=== PATIENT | female | born 1985 | race Caucasian/White ===

== ENCOUNTER 2017-08-30 10:49 | Emergency (ER) | payer MEDICAID ==
[2017-08-30 11:13] VITALS: BMI 18.2
[2017-08-30 11:21] VITALS: TEMP 98.6
--- NOTE | 2017-08-30 11:43 | ED PDOC ---
Arrival/HPI - General Chief Complaint: Female Genitourinary Time Seen by Provider: 08/30/17 11:39 Historian: Patient, Spouse - History of Present Illness Narrative History of Present Illness (Text): 08/30/17 11:39 pt p/w + sudden onset of vaginal spotting/bleeding, pt noted + prior pelvic cramps and persistent cramps post bleeding; pt with 5/10 pain cramps; pt states + nausea/+ 1 episode of vomiting; no fever/chills/sweats, no cp/sob/palpitations , no numbness/tingling, no urinary/bowel changes; pt denied LOC; pt is here for further eval; pt's without other complaints. pt denied fall/trauma/sick contact, no travel LMP: 06/17/2017 + care - + U/S was performed by private OB ~ 2 weeks ago confirmed single intraUterine gestation Time/Duration: Prior to Arrival Symptom Onset: Sudden Symptom Course: Improving Quality: Cramping Severity Level: 5 Activities at Onset: Rest Context: Home Past Medical History - Provider Review Nursing Documentation Reviewed: Yes - Travel History Have you recently traveled outside [place] w/in the past 3 mons?: No - Past History Past History: No Previous - Infectious Disease Hx of Infectious Diseases: None - Reproductive Menopause: No Currently : Yes - Psychiatric Hx Substance Use: No - Surgical History Other/Comment: B/L Beast implants - Anesthesia Hx Anesthesia: No Hx Anesthesia Reactions: No Hx Malignant Hyperthermia: No Family/Social History - Physician Review Nursing Documentation Reviewed: Yes Family/Social History: No Known Family HX Smoking Status: Never Smoked Hx Alcohol Use: No Hx Substance Use: No Hx Substance Use Treatment: No Allergies/Home Meds Allergies/Adverse Reactions: Allergies No Known Allergies Allergy (Verified 08/30/17 11:21) Home Medications: Home Meds Medication Instructions Recorded Confirmed No Known Home Med 08/30/17 08/30/17 Review of Systems - Review of Systems Constitutional: Normal Eyes: Normal ENT: Normal Respiratory: Normal Cardiovascular: Normal Gastrointestinal: Abdominal Pain, Nausea, Vomiting Genitourinary Female: Vaginal Bleeding. absent: Dysuria, Frequency, Hematuria, Vaginal Discharge Musculoskeletal: Normal Skin: Normal Neurological: Normal Endocrine: Normal Hemo/Lymphatic: Normal Psychiatric: Normal Physical Exam Vital Signs Reviewed: Yes Vital Signs Temp Pulse Resp BP Pulse Ox 08/30/17 14:00 82 18 132/80 100 08/30/17 12:30 76 17 129/78 100 08/30/17 11:13 98.6 F 80 18 136/84 99 Temperature: Afebrile Blood Pressure: Normal Pulse: Regular Respiratory Rate: Normal Appearance: Positive for: Well-Appearing, Non-Toxic, Uncomfortable, Other ( uncomfortable, alert/awake, GCS = 15, oriented x 3, NAD, resting in bed; cooperative) Pain Distress: None Mental Status: Positive for: Alert and Oriented X 3 - Systems Exam Head: Present: Atraumatic, Normocephalic Pupils: Present: PERRL, Other (no nystagmus, no photophobia, sclera anicteric, visual field intact b/l) Extroacular Muscles: Present: EOMI Conjunctiva: Present: Normal Ears: Present: Normal Mouth: Present: Moist Mucous Membranes, Other (no drooling/stridor, no exudate/ lesions, intact dentitions) Pharnyx: Present: Normal Nose (External): Present: Atraumatic Nose (Internal): Present: Normal Inspection Neck: Present: Normal Range of Motion, Trachea Midline, Other (intact ROM, no meningeal signs, no midline tenderness, no step off). No: MIDLINE TENDERNESS Respiratory/Chest: Present: Clear to Auscultation, Good Air Exchange, Other ( CTA b/l, no w/r/r) Cardiovascular: Present: Regular Rate and Rhythm, Normal S1, S2. No: Murmurs, Tachycardic Abdomen: Present: Normal Bowel Sounds, Other (+ suprapubic/lower mid pelvic mild tenderness, no street's sign, no mcburney's point tenderness, no masses/ rebound/guarding/rigidity; well nourished female) Genitourinary/Pelvic Exam: Present: Normal External Genitalia, Cervical os Closed, Other. No: Vaginal Discharge, Vaginal Bleeding, Adenexal Tenderness, Adenexal Mass Back: Present: Normal Inspection, Other (no midline tenderness, no CVAT b/l, no step off). No: CVA Tenderness, Midline Tenderness Upper Extremity: Present: Normal Inspection, Normal ROM, NORMAL PULSES, Neurovascularly Intact, Capillary Refill < 2s Lower Extremity: Present: Normal Inspection, NORMAL PULSES, Normal ROM, Neurovascularly Intact, Capillary Refill < 2 s, Other (+ ambulatory, neurovasc intact b/l, strength 5/5 grossly intact in all limbs) Neurological: Present: GCS=15, CN II-XII Intact, Speech Normal Skin: Present: Warm, Normal Color, Other (cap refill < 1 sec, no ulcerations, no petechiae, no rashes, no pallor) Psychiatric: Present: Alert, Oriented x 3 Medical Decision Making ED Course and Treatment: 08/30/17 11:40 Impression: vaginal bleeding, + preg i have consider all the differential diagnosis regarding pt's chief medical complaints/clinical findings, including but are not limited to: + vaginal bleeding/preg A/P: vaginal bleeding/preg - labs - ua - us - observe - supportive care 08/30/17 14:50 pt tolerated po well pt is feeling improved vital signs stable pt/spouse are made aware of her medical results pt is encouraged no heavy lifting pt is encouraged no sex pt is encouraged fluid hydration pt will f/u as directed pt will be discharged home Re-evaluation Time: 14:11 Reassessment Condition: Improved - Lab Interpretations Lab Results: Lab Results 08/30/17 11:50: Blood Type Pending, Antibody Screen Pending, BBK History Checked No verified bt 08/30/17 11:50: Beta HCG, Quant [id number] H 08/30/17 11:50: Urine Color Yellow, Urine Appearance Clear, Urine pH 6.0, Ur Specific [place] 1.025, Urine Protein Trace H, Urine Glucose (UA) Negative, Urine Ketones Negative, Urine Blood Large H, Urine Nitrate Negative, Urine Bilirubin Negative, Urine Urobilinogen 0.2, Ur Leukocyte Esterase Negative, Urine RBC 20 - 25, Urine WBC 1 - 3, Ur Epithelial Cells 6 - 8, Urine Bacteria Many, Coarse Granular Casts Trace H, Urine Other Uyeast 08/30/17 11:50: APTT 26.4 I have reviewed the lab results: Yes Interpretation: All labs normal (pt is O+) - RAD Interpretation Narrative RAD Interpretations (Text): Report Date : 08/30/2017 12:36:25 PROCEDURE: OB Pelvic Ultrasound Dictator : Savana Sanchez MD IMPRESSION: Single live intrauterine gestation with mean gestational age of 11 weeks and 5 days. Estimated date of delivery by ultrasound is 03/16/2018. 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 Ulcer: No History Surgical Site Infection Following: None - Disposition Have Diagnosis and Disposition been Completed?: Yes Diagnosis: Threatened in first trimester, Vaginal bleeding Disposition: HOME/ ROUTINE Disposition Time: 15:00 Patient Plan: Discharge Patient Problems: Current Active Problems Problem Status Onset Threatened in first trimester Acute Vaginal bleeding Acute Condition: STABLE Discharge Instructions (ExitCare): Threatened Miscarriage, Bleeding With Print Language: PALAUAN Additional Instructions: Make sure to see your doctor in 1-2 days YOU need to see your OB doctor as soon as possible DRINK PLENTY OF FLUIDS take your medications as prescribed AVOID heavy lifting AVOID sex until your doctor says its ok RETURN TO ED IF worse pain, cant breath, persistent vomiting, high fever >101- 102 for hours, altered behavior, unable to urinate, heavy/persistent bleeding, passing out, chest pain, or other medical emergencies Referrals: [facility] Neeta Briones, [Primary Care Provider] - Follow up with primary Forms: [employer] (H[place]er)
[2017-08-30 12:03] LABS: URINE BILIRUBIN NEGATIVE (NEGATIVE); URINE BLOOD LARGE (NEGATIVE); URINE GLUCOSE (UA) NEGATIVE (NEGATIVE); URINE LEUKOCYTE ESTERASE NEGATIVE Leu/uL (NEGATIVE); URINE PROTEIN TRACE mg/dL (<30 mg/dL); URINE UROBILINOGEN 0.2 E.U./dL (<1 E.U./dL)
[2017-08-30 12:05] LABS: URINE APPEARANCE CLEAR (CLEAR); URINE COLOR YELLOW (YELLOW)
[2017-08-30 12:14] LABS: URINE BACTERIA MANY (NEG); URINE COARSE GRANULAR CAST TRACE /hpf (0-2); URINE RBC 20 - 25 /hpf (0-2)
--- NOTE | 2017-08-30 12:37 | US ---
PROCEDURE: OB Pelvic Ultrasound HISTORY: Vaginal bleeding, preg, lmp=06/17 COMPARISON: None available. FINDINGS: UTERUS: Single Live intrauterine gestation. CRL measures 5.02 cm equivalent to 11 weeks and 5 days of gestational age. Gestational sac diameter measures 5.64 cm equivalent to 11 weeks and 4 days of gestational age. age (Ultrasound estimated): 11 weeks and 5 days. Date of delivery (Ultrasound estimated) : 03/16/2018 Heart rate: 173 bpm. Luis[place]-gestational hemorrhage: None. Uterus measures 12.5 x 0.5 x 9.3 cm. No mass CERVIX: Long and closed. No cervical abnormality seen. RIGHT OVARY: Measures 5.0 x 2.2 x 3.4 cm. No mass. Normal flow. LEFT OVARY: Measures 4.1 x 4.0 x 1.2 cm. No mass. Normal flow. FREE FLUID: None. OTHER FINDINGS: None. IMPRESSION: Single live intrauterine gestation with mean gestational age of 11 weeks and 5 days. Estimated date of delivery by ultrasound is 03/16/2018.
[2017-08-30 14:43] VITALS: O2SAT 100
[2017-08-30 14:55] VITALS: BP 127/80; PULSE 78; RESP 17
== END 2017-08-30 14:56 | disposition home or self-care (01) ==
LOC: ED 10:49
DX: O20.0 Threatened abortion (principal); Z3A.11 11 weeks gestation of pregnancy

== ENCOUNTER 2018-06-09 19:08 | Emergency (ER) | payer MEDICAID ==
[2018-06-09 19:08] VITALS: BMI 18.2
[2018-06-09 20:08] VITALS: BP 106/68; PULSE 87; RESP 20; TEMP 97.9; O2SAT 95
--- NOTE | 2018-06-09 20:35 | ED PDOC ---
Arrival/HPI <Andry Raymundo - Last Filed: 06/09/18 22:36> - General Historian: Patient - History of Present Illness Narrative History of Present Illness (Text): 06/09/18 20:45 33 yo F presents c/o vaginal bleeding. States that she took a test 3 days ago which was (+), then started having vaginal bleeding today, reports that the bleeding is consistent with the bleeding she has when she has her menstrual period and that she is due for her period anyway. She is requesting for a repeat of test. Otherwise denies any fever, chills, abdominal pain, N/V, urinary symptoms. Has no other complaints. <Codie Do PA-C - Last Filed: 06/10/18 00:08> - General Chief Complaint: Female Genitourinary Time Seen by Provider: 06/09/18 19:26 Past Medical History - Past History Past History: No Previous - Infectious Disease Hx of Infectious Diseases: None - Psychiatric Hx Substance Use: No - Surgical History Other/Comment: B/L Beast implants - Anesthesia Hx Anesthesia: No Hx Anesthesia Reactions: No Hx Malignant Hyperthermia: No <Codie Do PA-C - Last Filed: 06/10/18 00:08> Family/Social History Family/Social History: No Known Family HX Smoking Status: Never Smoked Hx Alcohol Use: No Hx Substance Use: No Hx Substance Use Treatment: No <Codie Do PA-C - Last Filed: 06/10/18 00:08> Allergies/Home Meds <Andry Raymundo - Last Filed: 06/09/18 22:36> <Codie Do PA-C - Last Filed: 06/10/18 00:08> Allergies/Adverse Reactions: Allergies No Known Allergies Allergy (Verified 08/30/17 11:21) Home Medications: Home Meds Medication Instructions Recorded Confirmed No Known Home Med 08/30/17 08/30/17 Review of Systems - Review of Systems Constitutional: absent: Fatigue, Fevers Respiratory: absent: SOB, Cough Cardiovascular: absent: Chest Pain, Palpitations Gastrointestinal: absent: Abdominal Pain, Nausea, Vomiting Genitourinary Female: Vaginal Bleeding. absent: Dysuria, Frequency Musculoskeletal: absent: Arthralgias, Back Pain Skin: absent: Rash, Pruritis Neurological: absent: Headache, Dizziness <Codie Do PA-C - Last Filed: 06/10/18 00:08> Physical Exam Vital Signs Temp Pulse Resp BP Pulse Ox 06/09/18 20:08 97.9 F 87 20 106/68 95 <Andry Raymundo - Last Filed: 06/09/18 22:36> Vital Signs Temp Pulse Resp BP Pulse Ox 06/09/18 20:08 97.9 F 87 20 106/68 95 Temperature: Afebrile Blood Pressure: Normal Pulse: Regular Respiratory Rate: Normal Appearance: Positive for: Well-Appearing, Non-Toxic, Comfortable Pain Distress: None Mental Status: Positive for: Alert and Oriented X 3 - Systems Exam Head: Present: Atraumatic, Normocephalic Pupils: Present: PERRL Extroacular Muscles: Present: EOMI Conjunctiva: Present: Normal Mouth: Present: Moist Mucous Membranes Neck: Present: Normal Range of Motion Respiratory/Chest: Present: Clear to Auscultation, Good Air Exchange. No: Respiratory Distress, Accessory Muscle Use Cardiovascular: Present: Regular Rate and Rhythm, Normal S1, S2. No: Murmurs Abdomen: No: Tenderness, Distention, Peritoneal Signs, Rebound, Guarding Back: Present: Normal Inspection Upper Extremity: Present: Normal Inspection. No: Cyanosis, Edema Lower Extremity: Present: Normal Inspection. No: Edema Neurological: Present: GCS=15, CN II-XII Intact, Speech Normal Skin: Present: Warm, Dry, Normal Color. No: Rashes Psychiatric: Present: Alert, Oriented x 3, Normal Insight, Normal Concentration <Codie Do PA-C - Last Filed: 06/10/18 00:08> Medical Decision Making ED Course and Treatment: 06/09/18 20:35 [facility] [place] (-). Patient made aware, advised that she likely has her period at this time. Patient is relieved and wants to go home now. Advised to follow up with the clinic. <Codie Do PA-C - Last Filed: 06/10/18 00:08> - PA / [employer] / Resident Statement / has reviewed & agrees with the documentation as recorded. <Andry Raymundo - Last Filed: 06/09/18 22:36> - PA / [employer] / Resident Statement / has reviewed & agrees with the documentation as recorded. <Codie Do PA-C - Last Filed: 06/10/18 00:08> Disposition/Present on Arrival <Andry Raymundo - Last Filed: 06/09/18 22:36> - Present on Arrival Any Indicators Present on Arrival: No History of DVT/PE: No History of Uncontrolled Diabetes: No Urinary Catheter: No History of Decub. Ulcer: No History Surgical Site Infection Following: None - Disposition Have Diagnosis and Disposition been Completed?: Yes Disposition Time: 20:15 Patient Plan: Discharge <Codie Do PA-C - Last Filed: 06/10/18 00:08> - Disposition Diagnosis: test negative Disposition: HOME/ ROUTINE Condition: STABLE Discharge Instructions (ExitCare): Tests Additional Instructions: Thank you for letting us take care of you today. The emergency medical care you received today was directed at your acute symptoms. Return to the Emergency Department if your symptoms worsen, do not improve, or if you have any other problems. Please contact your doctor in 2 days for re-evaluation and follow up. Bring any paperwork you were given at discharge with you along with any medications you are taking to your follow up visit. Our treatment cannot replace ongoing medical care by a primary care provider (PCP) outside of the emergency department. [facility]. Referrals: PCP,NO [Primary Care Provider] - [place] up with [place] [facility] [place] - [facility] [Outside] - Follow up with primary Forms: [employer] ([employer])
== END 2018-06-09 20:40 | disposition home or self-care (01) ==
LOC: ED 19:08
DX: Z32.02 Encounter for pregnancy test, result negative (principal)